=== PATIENT | female | born 1975 | race Caucasian/White ===

== ENCOUNTER 2021-05-16 06:21 | Day surgery (SDC) | payer OTHER ==
[~2021-05-16] VITALS: Ht 157.5 cm; Wt 52.2 kg
[2021-05-16 07:17] LABS: HCT 41.7 % (37.0-47.0); HGB 13.3 g/dl (12.5-16.0); MCHC 31.9 g/dL (32.0-36.0); MCV 84.6 fL (78.0-100.0); RBC 4.93 M/uL (4.20-5.40); RDW 15.9 % (11.5-14.0); WBC 8.4 K/uL (4.0-10.5)
[2021-05-16 07:26] LABS: HCG (URINE) SCREEN NEGATIVE (NEGATIVE)
== END 2021-05-17 11:45 | disposition home or self-care (01) ==
LOC: FAS 06:21 → EDSTATUS 07:30 → FAS 08:45 → FMS 15:39 → FAS 05-17 11:45
PROVIDERS: Specialist
DX: D25.9 Leiomyoma of uterus, unspecified (principal); N85.4 Malposition of uterus
CPT/HCPCS: 36415; 84703; 86850; 86900; 86901; 94010; 94760; J0690; J1170; J1885; J2250; J2370; J2405; J2550; J2704; J2710; J3010; J7120

== ENCOUNTER 2021-10-28 03:48 | Emergency (ER) | payer OTHER ==
[2021-10-28 04:17] LABS: BILIRUBIN NEGATIVE (NEGATIVE); BLOOD 3+ Ery/uL (NEGATIVE); CLARITY CLEAR (CLEAR); COLOR YELLOW (YELLOW); GLUCOSE (U) NORMAL (NORMAL); LEUKOCYTES 3+ Leu/uL (NEGATIVE); NITRITE NEGATIVE (NEGATIVE); PROTEIN NEGATIVE (NEGATIVE); UROBILINOGEN 0.2 mg/dL (0.2-1.0); pH 7.5 (5.0-9.0)
[2021-10-28 04:26] LABS: BACTERIA 1+; SQUAMOUS EPITHELIAL CELLS RARE
[2021-10-28] MEDS ORDERED: MONISTAT 11 EACH TOP (05:22)
[2021-10-28] MEDS ORDERED: DIFLUCAN 100MG100 MG PO (05:22)
[2021-10-28] MEDS ORDERED: BACTRIM DS TAB1 EACH PO (05:22)
== END 2021-10-28 05:57 | disposition home or self-care (01) ==
LOC: FER 03:48
PROVIDERS: Emergency Medicine
DX: N39.0 Urinary tract infection, site not specified (principal); N76.0 Acute vaginitis
CPT/HCPCS: 81001; 87088; 99283